=== PATIENT | female | born 1970 | race Asian ===

== ENCOUNTER 2017-05-18 10:47 | Emergency (ER) | payer OTHER | END 2017-05-18 12:05 | disposition home or self-care (01) | LOC: FTE 10:47 | DX: S16.1XXA Strain of muscle, fascia and tendon at neck level, initial encounter (principal); V49.50XA Passenger injured in collision with unspecified motor vehicles in traffic accident, initial encounter | CPT/HCPCS: 99283; Z7502 ==

== ENCOUNTER 2017-09-28 10:52 | Day surgery (SDC) | payer OTHER ==
[~2017-09-28 10:52] MED LIST: DEXAMETHASONE 4 MG/ML 1 ML INJ; LIDOCAINE 2% (SDV) 5 ML INJ; ONDANSETRON 4 MG INJ; ROCURONIUM 50 MG INJ
[2017-09-28] MEDS ORDERED: SOD CHLORIDE 0.9% 1,000 ML IV (12:00)
[2017-09-28] MEDS ORDERED: FENTAnyl 50 MCG/ML VIAL IV ×2 (12:30)
[2017-09-28] MEDS ORDERED: DIPHENHYDRAMINE 50 MG INJ IV (12:30)
[2017-09-28] MEDS ORDERED: METOCLOPRAMIDE 10 MG INJ IV (12:30)
[2017-09-28] MEDS ORDERED: hydrALAzine 20 MG INJ IV (12:30)
[2017-09-28] MEDS ORDERED: ALBUTEROL 0.083% (NEB) 2.5 MG/3 ML AMP HHN (12:30)
[2017-09-28] MEDS ORDERED: OXYCODONE/ACETAMINOPHEN (5/325) TAB PO ×2 (12:30)
[2017-09-28] MEDS ORDERED: KETOROLAC 30 MG INJ IV ×2 (12:30→14:30)
[2017-09-28] MEDS ORDERED: MIDAZOLAM 1 MG/ML 2 ML INJ IV (12:30)
[2017-09-28] MEDS ORDERED: LABETALOL HCL 20MG INJ IV (12:30)
[2017-09-28] MEDS ORDERED: HYDROmorphONE 1 MG/5 ML IV SYRINGE IV (12:30)
[2017-09-28] MEDS ORDERED: EPHEDrine SULFATE 50 MG/5 ML SYG IV (12:30)
[2017-09-28] MEDS ORDERED: CEFAZOLIN 1 GM INJ (12:31)
[2017-09-28] MEDS: CEFAZOLIN 1 GM/50 ML (PMX) 50 ML IVPB (13:00)
[2017-09-28] MEDS: BUPIVACAINE 0.25%/EPI (MDV) 50 ML VIAL INJ (13:22)
[2017-09-28] MEDS ORDERED: SUGAMMADEX SODIUM 200 MG/2 ML VIAL IV (14:14)
[2017-09-28] MEDS ORDERED: PROPOFOL 100 ML (14:14)
[2017-09-28] MEDS ORDERED: ONDANSETRON 4 MG INJ IV (14:30)
[2017-09-28] MEDS ORDERED: IBUPROFEN 600 MG TAB PO (14:30)
[2017-09-28] MEDS ORDERED: morphine 2 MG INJ IV (14:30)
[2017-09-28] MEDS ORDERED: HYDROCODONE/APAP (5/325) TAB PO (14:30)
[2017-09-28] MEDS: HYDROmorphONE 1 MG/5 ML IV SYRINGE IV ×2 (15:02→15:31)
[2017-09-28] MEDS: ONDANSETRON 4 MG INJ IV (15:03)
[2017-09-28] MEDS: MEPERIDINE 25 MG INJ IV (15:04)
[2017-09-28] MEDS: FENTAnyl 50 MCG/ML VIAL IV (15:40)
[2017-09-28] MEDS: HYDROCODONE/APAP (5/325) TAB PO (16:34)
== END 2017-09-28 17:35 | disposition home or self-care (01) ==
LOC: SDS 10:52
DX: K80.10 Calculus of gallbladder with chronic cholecystitis without obstruction (principal)
CPT/HCPCS: 47562; 84703; 88304